=== PATIENT | female | born 1980 | race Caucasian/White ===

== ENCOUNTER 2021-02-17 09:59 | Emergency (ER) | payer OTHER | END 2021-02-17 12:02 | disposition home or self-care (01) | LOC: FER 09:59 | DX: S92.511A Displaced fracture of proximal phalanx of right lesser toe(s), initial encounter for closed fracture (principal); W23.0XXA Caught, crushed, jammed, or pinched between moving objects, initial encounter | CPT/HCPCS: 73620 ==